=== PATIENT | female | born 1965 ===

== ENCOUNTER → 2022-01-27 | Outpatient (CLI) | payer OTHER | END | disposition home or self-care (01) | LOC: RAD 10:14 | PROVIDERS: ATTEND Orthopaedic Surgery | DX: S82.55XA Nondisplaced fracture of medial malleolus of left tibia, initial encounter for closed fracture (principal) ==

== ENCOUNTER 2022-02-02 11:31 | Outpatient (CLI) | payer OTHER | END 2022-02-02 11:50 | disposition home or self-care (01) | LOC: RAD 11:31 | PROVIDERS: ATTEND Orthopaedic Surgery | DX: S82.55XA Nondisplaced fracture of medial malleolus of left tibia, initial encounter for closed fracture (principal) ==

== ENCOUNTER → 2022-02-02 | Outpatient (CLI) | payer OTHER | END | disposition home or self-care (01) | LOC: NUCLEAR 11:15 | PROVIDERS: ATTEND Orthopaedic Surgery | DX: M81.0 Age-related osteoporosis without current pathological fracture (principal) ==

== ENCOUNTER 2022-05-19 12:35 | Outpatient (CLI) | payer OTHER | END 2022-05-19 12:41 | disposition home or self-care (01) | LOC: LAB 12:35 | PROVIDERS: ATTEND Orthopaedic Surgery | DX: E55.9 Vitamin D deficiency, unspecified (principal); M85.9 Disorder of bone density and structure, unspecified; E56.1 Deficiency of vitamin K ==